=== PATIENT | female | born 1985 | race Caucasian/White ===

== ENCOUNTER 2016-05-18 04:30 | Outpatient (CLI) | payer BC, OTHER | END 2016-05-18 04:31 | disposition home or self-care (01) | DX: R39.15 Urgency of urination (principal) ==

== ENCOUNTER 2019-03-24 11:07 | Outpatient (CLI) | payer OTHER ==
[2019-03-24 18:27] LABS: BASOPHILS % (AUTO) 0.3 %; EOSINOPHILS % (AUTO) 0.6 %; HGB - HEMOGLOBIN 12.2 g/dL (12.0-16.0); LYMPHOCYTES # (AUTO) 1.8 10^3/uL (1.5-3.5); LYMPHOCYTES % (AUTO) 29.3 %; MEAN CORPUSCULAR HEMOGLOBIN 27.2 pg (27.0-31.0); MEAN CORPUSCULAR HGB CONC 31.9 g/dL (32.0-36.0); MEAN CORPUSCULAR VOLUME 85.5 fL (81.0-99.0); MONOCYTES # (AUTO) 0.3 10^3/uL (0.0-1.0); MONOCYTES % (AUTO) 5.3 %; NEUTROPHILS % (AUTO) 64.2 %; PLT - PLATELET COUNT 274 10^3/uL (130-450); RED BLOOD COUNT 4.48 10^6/uL (4.20-5.40); RED CELL DISTRIBUTION WIDTH 13.8 % (12.0-15.0); WHITE BLOOD COUNT 6.2 x10^3/uL (4.8-10.8)
[2019-03-24 19:25] LABS: ALBUMIN 4.2 g/dL (3.2-5.5); ALBUMIN/GLOBULIN RATIO 1.2 (1.0-2.2); ALKALINE PHOSPHATASE 69 IU/L (42-121); ALT ALANINE AMINOTRANSFERASE 19 IU/L (10-60); AST ASPARTATE AMINOTRANSFERASE 18 IU/L (10-42); BILIRUBIN,TOTAL 0.5 mg/dL (0.2-1.0); BUN - BLOOD UREA NITROGEN 11 mg/dL (6-20); CALCIUM 9.2 mg/dL (8.5-10.3); CARBON DIOXIDE - CO2 29 mmol/L (21-32); CHLORIDE 104 mmol/L (101-111); CHOLESTEROL 149 mg/dL; CREATININE 0.8 mg/dL (0.4-1.0); GFR - MDRD 82 (>89); GLUCOSE 87 mg/dL (70-100); HDL CHOLESTEROL 50 mg/dL; LDL CHOLESTEROL,CALCULATED 84 mg/dL; LDL/HDL RATIO 1.7 (<4.4); SODIUM 139 mmol/L (135-145); TOTAL PROTEIN 7.6 g/dL (6.7-8.2); VLDL CHOLESTEROL 15 mg/dL
== END 2019-03-24 23:59 | disposition home or self-care (01) ==
LOC: LAB.WCP 11:07
PROVIDERS: ATTEND Physician Assistant Medical
DX: Z00.00 Encounter for general adult medical examination without abnormal findings (principal)
CPT/HCPCS: 36415; 80053; 80061; 83721; 84443; 85025

== ENCOUNTER 2020-07-31 07:31 | Emergency (ER) | payer OTHER ==
[2020-07-31] MEDS ORDERED: SODIUM CHLORIDE 0.9% 1,000 ML IV STA (07:46)
[2020-07-31] MEDS ORDERED: ONDANSETRON 4 MG/2 ML VIAL IVP STA (07:46)
[2020-07-31] MEDS ORDERED: KETOROLAC 15 MG/ML VIAL IVP STA ×2 (07:46→08:20)
[2020-07-31 07:55] LABS: BASOPHILS % (AUTO) 0.3 %; EOSINOPHILS % (AUTO) 0.4 %; HCT - HEMATOCRIT 39.3 % (37.0-47.0); HGB - HEMOGLOBIN 12.4 g/dL (12.0-16.0); LYMPHOCYTES # (AUTO) 1.1 10^3/uL (1.5-3.5); LYMPHOCYTES % (AUTO) 15.2 %; MEAN CORPUSCULAR HEMOGLOBIN 26.6 pg (27.0-31.0); MEAN CORPUSCULAR HGB CONC 31.6 g/dL (32.0-36.0); MEAN CORPUSCULAR VOLUME 84.3 fL (81.0-99.0); MEAN PLATELET VOLUME 10.7 fL (7.9-10.8); MONOCYTES # (AUTO) 0.3 10^3/uL (0.0-1.0); MONOCYTES % (AUTO) 4.3 %; NEUTROPHILS % (AUTO) 79.4 %; PLT - PLATELET COUNT 272 10^3/uL (130-450); RED BLOOD COUNT 4.66 10^6/uL (4.20-5.40); RED CELL DISTRIBUTION WIDTH 14.8 % (12.0-15.0); WHITE BLOOD COUNT 7.5 x10^3/uL (4.8-10.8)
--- NOTE | 2020-07-31 08:07 | ED Physician Documentation ---
History of Present Illness - Stated complaint Stated Complaint: LT FLANK PX - Chief complaint Chief Complaint: Abd Pain - History obtained from History obtained from: Patient - Additonal information Additional information: 35-year-old woman with past medical history of kidney stones at 17 years of age presents with similar pain today. She states that 4 AM she had sudden onset left flank pain radiating to the left lower quadrant associated with nonbloody nonbilious nausea and vomiting, persistent and sharp, waxing and waning in severity up until 7:30 AM when it abruptly stopped upon arrival to the emergency department. She does still endorse some mild nausea and ache to the back. Denies urinary symptoms, fever or diarrhea. She was feeling normal yesterday. Review of Systems Ten Systems: 10 systems reviewed and negative Constitutional: denies: Fever, Chills GI: reports: Abdominal Pain, Nausea, Vomiting : denies: Dysuria Musculoskeletal: denies: Back pain PD PAST MEDICAL HISTORY - Past Medical History Past Medical History: Yes Cardiovascular: None Respiratory: None Neuro: None Endocrine/Autoimmune: None GI: None GORE CUTTER: Ovarian cysts : Kidney stones HEENT: None Psych: Depression Musculoskeletal: None Derm: None - Past Surgical History Past Surgical History: Yes /GORE CUTTER: section, Tubal ligation - Present Medications Home Medications: Ambulatory Orders Medication Instructions Recorded Confirmed Escitalopram [Lexapro] 10 mg PO DAILY 07/31/20 07/31/20 Ondansetron Odt [Zofran Odt] 4 mg TL Q6H PRN #10 tablet 07/31/20 Tamsulosin [Flomax] 0.4 mg PO DAILY 14 Days #14 tab 07/31/20 oxyCODONE [Roxicodone] 5 mg PO Q4-6H PRN #8 tablet 07/31/20 - Allergies Allergies/Adverse Reactions: Allergies Allergy/AdvReac Type Severity Reaction Status Date / Time No Known Drug Allergies Allergy Verified 07/31/20 07:34 - Social History Does the pt smoke?: No Smoking Status: Never smoker Does the pt drink ETOH?: No Does the pt have substance abuse?: No PD ED PE NORMAL - Vitals Vital signs reviewed: Yes - General General: Alert and oriented X 3, No acute distress, Well developed/nourished - HEENT HEENT: Atraumatic, PERRL, EOMI - Neck Neck: Supple, no meningeal sign - Cardiac Cardiac: RRR - Respiratory Respiratory: No respiratory distress, Clear bilaterally - Abdomen Abdomen: Non tender, Non distended - Back Back: No CVA TTP, Other (Left CVA discomfort with palpation) - Derm Derm: Normal color, Warm and dry - Extremities Extremities: No deformity - Neuro Neuro: Alert and oriented X 3 - Psych Psych: Normal mood, Normal affect Results - Vitals Vitals: Vital Signs - 24 hr 07/31/20 07/31/20 07:34 08:07 Temperature 36.2 C L Heart Rate 72 76 Respiratory 18 18 Rate Blood Pressure 134/90 H 155/81 H O2 Saturation 100 100 Oxygen O2 Source Room air - Labs Labs: Laboratory Tests 07/31/20 07/31/20 07:50 07:50 WBC 7.5 RBC 4.66 Hgb 12.4 Hct 39.3 MCV 84.3 MCH 26.6 L MCHC 31.6 L RDW 14.8 Plt Count 272 MPV 10.7 Neut # (Auto) 6.0 Lymph # (Auto) 1.1 L Person # (Auto) 0.3 Eos # (Auto) 0.0 Baso # (Auto) 0.0 Absolute Nucleated RBC 0.00 Nucleated RBC % 0.0 Sodium 141 Potassium 3.7 Chloride 103 Carbon Dioxide 29 Anion Gap 9.0 BUN 13 Creatinine 0.8 Estimated GFR (MDRD) 81 L Glucose 119 H Calcium 9.0 Total Bilirubin 0.4 AST 19 ALT 23 Alkaline Phosphatase 70 Total Protein 7.8 Albumin 4.3 Globulin 3.5 Albumin/Globulin Ratio 1.2 Lipase 36 PD MEDICAL DECISION MAKING - ED course ED course: 35-year-old woman presents with apparent recurrent kidney stones. Her symptoms were well controlled upon arrival to the emergency department, however we will give her Zofran and Toradol proactively. patient with mild recurrence of pain when she went to bathroom to urinate and passed a small stone into the toilet. labs urinalysis unremarkable. Bedside [id number] ultrasound of the kidneys and bladder are normal without any signs of hydronephrosis. Patient will follow up outpatient urology. Strict return precautions given Departure - Departure Clinical Impression: Kidney stones Condition: Good Instructions: Kidney Stones Follow-Up: Anuja Ayala MD [Physician No Access] - Prescriptions: Tamsulosin [Flomax] 0.4 mg PO DAILY 14 Days #14 tab oxyCODONE [Roxicodone] 5 mg PO Q4-6H PRN #8 tablet PRN Reason: Pain Ondansetron Odt [Zofran Odt] 4 mg TL Q6H PRN #10 tablet PRN Reason: Nausea / Vomiting Comments: You are seen in the emergency department for kidney stones. Your urine sample and blood work was normal. You should follow-up outpatient with urology. Retu rn to the emergency department if develop any new or worsening symptoms or have other concerns.
[2020-07-31 08:09] LABS: ALBUMIN 4.3 g/dL (3.2-5.5); ALBUMIN/GLOBULIN RATIO 1.2 (1.0-2.2); BILIRUBIN,TOTAL 0.4 mg/dL (0.2-1.0); CREATININE 0.8 mg/dL (0.4-1.0); POTASSIUM 3.7 mmol/L (3.5-5.0); TOTAL PROTEIN 7.8 g/dL (6.7-8.2)
[2020-07-31 08:19] LABS: BILIRUBIN,URINE NEGATIVE (NEGATIVE); GLUCOSE, URINE (UA) NEGATIVE (NEGATIVE); KETONES,URINE (UA) NEGATIVE (NEGATIVE); LEUKOCYTE ESTERASE, URINE NEGATIVE (NEGATIVE); NITRITE,URINE NEGATIVE (NEGATIVE); OCCULT BLOOD,URINE MODERATE (NEGATIVE); PROTEIN,URINE NEGATIVE (NEGATIVE); UROBILINOGEN,URINE 0.2 (NORMAL) E.U./dL (NORMAL)
[2020-07-31] MEDS ORDERED: ACETAMINOPHEN 325 MG TABLET PO STA (08:20)
[2020-07-31 08:26] LABS: CLARITY,URINE CLEAR (CLEAR)
[2020-07-31 08:31] LABS: WBC,URINE 0-3 /HPF (0-5)
[2020-07-31 08:32] LABS: BACTERIA,URINE Few /HPF (None Seen); SQUAMOUS EPITHELIAL CELL,UR MOD Squamous (<= Few)
[2020-07-31 09:14] VITALS: BP 129/82
== END 2020-07-31 09:17 | disposition home or self-care (01) ==
LOC: ED 07:31
DX: N20.0 Calculus of kidney (principal); Z87.442 Personal history of urinary calculi
CPT/HCPCS: 36415; 80053; 81001; 83690; 85025; 96361; 96374; 99283; 99284; A9270; 81003; 87086

== ENCOUNTER 2021-04-06 08:00 | Outpatient (CLI) | payer OTHER | END 2021-04-06 23:59 | disposition home or self-care (01) | LOC: LAB.WCP 08:00 | PROVIDERS: ATTEND Physician Assistant Medical | DX: R39.15 Urgency of urination (principal) | CPT/HCPCS: 87086 ==

== ENCOUNTER 2021-07-14 15:38 | Outpatient (CLI) | payer OTHER ==
[2021-07-17 14:02] LABS: NIL 0.02 IU/mL; TB2-NIL 0.01 IU/mL
== END 2021-07-14 15:39 | disposition home or self-care (01) ==
LOC: LAB.N 15:38
PROVIDERS: ATTEND Nurse Practitioner Family
DX: Z11.1 Encounter for screening for respiratory tuberculosis (principal)
CPT/HCPCS: 36415; 86480

== ENCOUNTER 2021-09-18 09:13 | Outpatient (CLI) | payer OTHER ==
[2021-09-18 11:55] LABS: BASOPHILS % (AUTO) 0.3 %; EOSINOPHILS # (AUTO) 0.1 10^3/uL (0.0-0.7); HCT - HEMATOCRIT 38.4 % (37.0-47.0); HGB - HEMOGLOBIN 12.2 g/dL (12.0-16.0); LYMPHOCYTES # (AUTO) 2.4 10^3/uL (1.5-3.5); LYMPHOCYTES % (AUTO) 32.9 %; MEAN CORPUSCULAR HEMOGLOBIN 26.2 pg (27.0-31.0); MEAN CORPUSCULAR HGB CONC 31.8 g/dL (32.0-36.0); MEAN CORPUSCULAR VOLUME 82.4 fL (81.0-99.0); MEAN PLATELET VOLUME 10.9 fL (7.9-10.8); MONOCYTES # (AUTO) 0.4 10^3/uL (0.0-1.0); MONOCYTES % (AUTO) 5.8 %; NEUTROPHILS # (AUTO) 4.3 10^3/uL (1.5-6.6); NEUTROPHILS % (AUTO) 59.7 %; PLT - PLATELET COUNT 319 10^3/uL (130-450); RED BLOOD COUNT 4.66 10^6/uL (4.20-5.40); RED CELL DISTRIBUTION WIDTH 14.4 % (12.0-15.0); WHITE BLOOD COUNT 7.2 x10^3/uL (4.8-10.8)
[2021-09-18 12:20] LABS: ALBUMIN 4.1 g/dL (3.2-5.5); ALBUMIN/GLOBULIN RATIO 1.2 (1.0-2.2); ALKALINE PHOSPHATASE 62 IU/L (42-121); ALT ALANINE AMINOTRANSFERASE 24 IU/L (10-60); AST ASPARTATE AMINOTRANSFERASE 18 IU/L (10-42); BILIRUBIN,TOTAL 0.3 mg/dL (0.2-1.0); BUN - BLOOD UREA NITROGEN 10 mg/dL (6-20); CALCIUM 9.7 mg/dL (8.5-10.3); CARBON DIOXIDE - CO2 29 mmol/L (21-32); CHLORIDE 104 mmol/L (101-111); CHOL/HDL RATIO 3.8 (<4.4); CHOLESTEROL 168 mg/dL; CREATININE 0.7 mg/dL (0.4-1.0); GFR - MDRD 94 (>89); GLUCOSE 102 mg/dL (70-100); HDL CHOLESTEROL 44 mg/dL; LDL CHOLESTEROL,CALCULATED 108 mg/dL; LDL/HDL RATIO 2.5 (<4.4); POTASSIUM 4.2 mmol/L (3.5-5.0); SODIUM 141 mmol/L (135-145); TOTAL PROTEIN 7.4 g/dL (6.7-8.2); TRIGLYCERIDES 79 mg/dL; VLDL CHOLESTEROL 16 mg/dL
[2021-09-18 12:25] LABS: ESTIMATED AVERAGE GLUCOSE 105 mg/dL (70-100); HEMOGLOBIN A1c% 5.3 % (4.27-6.07); THYROID STIMULATING HORMONE 3.18 uIU/mL (0.34-5.60)
== END 2021-09-18 09:14 | disposition home or self-care (01) ==
LOC: LAB.N 09:13
PROVIDERS: ATTEND Nurse Practitioner Family
DX: R03.0 Elevated blood-pressure reading, without diagnosis of hypertension (principal); E66.01 Morbid (severe) obesity due to excess calories
CPT/HCPCS: 36415; 80053; 80061; 83036; 83721; 84443; 85025

== ENCOUNTER 2022-01-15 15:28 | Outpatient (CLI) | payer OTHER ==
[2022-01-15 17:37] LABS: BASOPHILS % (AUTO) 0.3 %; EOSINOPHILS # (AUTO) 0.1 10^3/uL (0.0-0.7); EOSINOPHILS % (AUTO) 0.5 %; HCT - HEMATOCRIT 38.3 % (37.0-47.0); HGB - HEMOGLOBIN 12.5 g/dL (12.0-16.0); LYMPHOCYTES # (AUTO) 2.6 10^3/uL (1.5-3.5); LYMPHOCYTES % (AUTO) 27.6 %; MEAN CORPUSCULAR HEMOGLOBIN 26.4 pg (27.0-31.0); MEAN CORPUSCULAR HGB CONC 32.6 g/dL (32.0-36.0); MEAN PLATELET VOLUME 11.2 fL (7.9-10.8); MONOCYTES # (AUTO) 0.5 10^3/uL (0.0-1.0); MONOCYTES % (AUTO) 4.9 %; NEUTROPHILS # (AUTO) 6.2 10^3/uL (1.5-6.6); NEUTROPHILS % (AUTO) 66.4 %; PLT - PLATELET COUNT 339 10^3/uL (130-450); RED BLOOD COUNT 4.73 10^6/uL (4.20-5.40); WHITE BLOOD COUNT 9.3 x10^3/uL (4.8-10.8)
[2022-01-15 17:58] LABS: ALBUMIN 4.3 g/dL (3.2-5.5); ALBUMIN/GLOBULIN RATIO 1.1 (1.0-2.2); BILIRUBIN,TOTAL 0.4 mg/dL (0.2-1.0); CALCIUM 9.7 mg/dL (8.5-10.3); CREATININE 0.7 mg/dL (0.4-1.0); POTASSIUM 3.6 mmol/L (3.5-5.0); TOTAL PROTEIN 8.1 g/dL (6.7-8.2)
== END 2022-01-15 15:29 | disposition home or self-care (01) ==
LOC: LAB.N 15:28
PROVIDERS: ATTEND Physician Assistant
DX: R10.12 Left upper quadrant pain (principal)
CPT/HCPCS: 36415; 80053; 82150; 83690; 85025

== ENCOUNTER 2022-01-18 07:52 | Outpatient (CLI) | payer OTHER ==
--- NOTE | 2022-01-19 11:18 | Mammography Report ---
UNILATERAL LEFT DIGITAL DIAGNOSTIC MAMMOGRAM 3D/2D: 01/18/2022 CLINICAL: Patient returns for a 6 month follow up of the left breast. Comparison is made to exams dated: 07/18/2021 mammogram and 07/18/2021 ultrasound - [facility]. There are scattered areas of fibroglandular density in the left breast (category b / 25%-50% glandula r tissue). There is a 1.1 cm oval focal asymmetry with a circumscribed margin in the left breast at 8 o'clock mi ddle depth. This is seen in additional views. This is more prominent. No other significant masses or calcifications are seen in the breast. IMPRESSION: INCOMPLETE: NEEDS ADDITIONAL IMAGING EVALUATION The 1.1 cm oval focal asymmetry in the left breast is indeterminate. An ultrasound is recommended. Based on the Tyrer Cuzick model (a risk assessment model) the patients lifetime risk is 13.2% and he r 10 year risk is 1.2%. According to the ACR, ACS, and NCCN guidelines, an annual breast MRI exam tomasz ng with mammogram is recommended if the patients lifetime risk is 20% or greater. This exam was interpreted at Station ID: [id number]. NOTE: For mammograms, a report in lay terms will be sent to the patient. Approximately 15% of breast malignancies will not be visualized mammographically. In the management of a palpable breast mass, a negative mammogram must not discourage biopsy of a clinically suspicious lesion. Electronically Signed By: Lonny vaughan/lee:01/19/2022 07:50:53 ACR BI-RADS Category 0: Incomplete 3340F PARENCHYMAL PATTERN: (A) - The breast(s) demonstrate(s) scattered fibroglandular densities. BI-RADS CATEGORY: (0) - 0 Ultrasound [id number] Immediate follow-up LATERALITY: (L)
--- NOTE | 2022-01-19 11:18 | Ultrasound Report ---
LIMITED ULTRASOUND OF LEFT BREAST: 01/18/2022 CLINICAL: Short term follow up for the left breast. Comparison is made to exams dated: 01/18/2022 mammogram - [facility], 07/18/2021 [facility], and 07/18/2021 mammogram - [facility]. Color flow and real-time ultrasound of the left breast 1 o'clock region were performed. Lerner scale images of the real-time examination were reviewed. There is a 1.1 cm x 0.9 cm x 0.4 cm cluster of oval cysts with a septated internal wall in the left b reast at 8 o'clock middle depth 5 cm from the nipple. This cluster of oval cysts is anechoic and hyp oechoic. This correlates with mammography findings. Color flow imaging demonstrates that there is n o vascularity present. There also is a benign dilated duct in the left breast at 1 o'clock middle depth 4 cm from the nipple . This correlates as an incidental finding. The dilated duct in the left breast at 1 o'clock posterior depth is no longer seen. IMPRESSION: PROBABLY BENIGN The 1.1 cm x 0.9 cm x 0.4 cm cluster of oval cysts in the left breast at 8 o'clock middle depth is co nsistent with a complicated cyst and is probably benign. The dilated duct in the left breast at 1 o'clock middle depth is benign. A follow-up mammogram and an ultrasound in 6 months is recommended to demonstrate stability. This exam was interpreted at Station ID: [id number]. Electronically Signed By: Lonny Beaver M.D. ar/:01/19/2022 07:54:59 Ultrasound BI-RADS: 3 Probably benign BI-RADS CATEGORY: (3) - 3 Mammo and [place] [id number] 6 month follow-up LATERALITY: (B)
== END 2022-01-18 07:53 | disposition home or self-care (01) ==
LOC: DI 07:52
PROVIDERS: ATTEND Nurse Practitioner Family
DX: N60.12 Diffuse cystic mastopathy of left breast (principal)

== ENCOUNTER 2022-01-25 07:20 | Outpatient (CLI) | payer OTHER ==
--- NOTE | 2022-01-26 09:33 | Ultrasound Report ---
PROCEDURE: Abdomen Complete INDICATIONS: ABD PAIN TECHNIQUE: Real-time scanning was performed of the abdominal and retroperitoneal organs, with image documentatio n. COMPARISON: None. FINDINGS: Liver: Liver is normal in size and diffusely increased echotexture. Gallbladder: Surgically absent. Biliary ducts: Intrahepatic bile ducts are non-dilated. Extrahepatic bile duct caliber measures 5.6 mm. Normal is 6-7 mm or less in diameter, or 10 mm or less post-cholecystectomy. Pancreas: Visualized portions of the pancreas are sonographically normal. Spleen: Spleen is normal in size and homogeneous in echotexture. Spleen measures 11.1 x 6.1 x 10 cm with an estimated volume of 351 mL. Kidneys: Kidneys are normal in size and echotexture. Right kidney measures 11.5 cm long; left kidne y measures 11.7 cm long. No hydronephrosis or nephrolithiasis. No solid masses. Aorta: Visualized aorta is normal in caliber at less than 3 cm. Iliacs: Proximal common iliac arteries are normal in caliber at less than 2.5 cm. IVC: Intrahepatic inferior vena cava is patent. Miscellaneous: No free abdominal fluid. IMPRESSION: 1. Diffuse increased hepatic echotexture consistent with fatty infiltration. Other hepatocellular dis ease may have a similar ultrasound appearance. Please correlate clinically. Reviewed by: Miguel Angel Mauro MD on 01/26/2022 9:32 AM PDT Approved by: Miguel Angel Mauro MD on 01/26/2022 9:32 AM PDT Station ID: [id number]
== END 2022-01-25 07:21 | disposition home or self-care (01) ==
LOC: DI 07:20
PROVIDERS: ATTEND Nurse Practitioner Family
DX: R10.12 Left upper quadrant pain (principal)

== ENCOUNTER 2022-02-14 16:42 | Outpatient (CLI) | payer OTHER ==
[2022-02-14 20:25] LABS: ALBUMIN 4.1 g/dL (3.2-5.5); ALBUMIN/GLOBULIN RATIO 1.1 (1.0-2.2); BILIRUBIN,TOTAL 0.4 mg/dL (0.2-1.0); CALCIUM 9.4 mg/dL (8.5-10.3); CREATININE 0.8 mg/dL (0.4-1.0); POTASSIUM 3.4 mmol/L (3.5-5.0); TOTAL PROTEIN 7.8 g/dL (6.7-8.2)
== END 2022-02-14 16:43 | disposition home or self-care (01) ==
LOC: LAB.N 16:42
PROVIDERS: ATTEND Nurse Practitioner Family
DX: I10 Essential (primary) hypertension (principal)
CPT/HCPCS: 36415; 80053

== ENCOUNTER 2022-07-18 09:49 | Outpatient (CLI) | payer OTHER ==
--- NOTE | 2022-07-19 10:10 | Mammography Report ---
BILATERAL DIGITAL DIAGNOSTIC MAMMOGRAM 3D/2D: 07/18/2022 CLINICAL: Patient returns for a 6 month follow up of the left breast, due for bilateral exam. Comparison is made to exams dated: 01/18/2022 mammogram - [facility] and 07/18/2021 mammogram - [facility]. There are scattered areas of fibroglandular density in both breasts (category b / 25%-50% glandular t issue). The subtle irregular low density asymmetry in the left breast at 8 o'clock middle depth is not signif icantly changed. Mammograms are otherwise stable. No new abnormalities in the area previously palpab le. No other significant masses, calcifications, or other findings are seen in either breast. IMPRESSION: INCOMPLETE: NEEDS ADDITIONAL IMAGING EVALUATION The possible irregular low density asymmetry in the left breast is stable. An ultrasound is recommend ed for confirmation. This was performed immediately following this exam. Based on the Tyrer Cuzick model (a risk assessment model) the patients lifetime risk is 13.1% and he r 10 year risk is 1.4%. According to the ACR, ACS, and NCCN guidelines, an annual breast MRI exam tomasz ng with mammogram is recommended if the patients lifetime risk is 20% or greater. This exam was interpreted at Station ID: [id number]. NOTE: For mammograms, a report in lay terms will be sent to the patient. Approximately 15% of breast malignancies will not be visualized mammographically. In the management of a palpable breast mass, a negative mammogram must not discourage biopsy of a clinically suspicious lesion. Electronically Signed By: Joy mendez/:07/18/2022 11:22:09 ACR BI-RADS Category 0: Incomplete 3340F PARENCHYMAL PATTERN: (A) - The breast(s) demonstrate(s) scattered fibroglandular densities. BI-RADS CATEGORY: (0) - 0 Ultrasound [id number] Immediate follow-up LATERALITY: (B)
--- NOTE | 2022-07-19 10:10 | Ultrasound Report ---
LIMITED ULTRASOUND OF LEFT BREAST: 07/18/2022 CLINICAL: Palpable left breast lump. Comparison is made to exams dated: 07/18/2022 mammogram, 01/18/2022 ultrasound, 01/18/2022 mammogram - [facility], 07/18/2021 ultrasound, and 07/18/2021 [facility]ogram - [facility] Color flow and real-time ultrasound of the left breast 1 o'clock and 8 o'clock regions were roseanne taylor. Lerner scale images of the real-time examination were reviewed. There is a 0.7 cm x 0.7 cm x 0.4 cm cluster of microcysts with a septated internal wall in the left b reast at 8 o'clock middle depth 5 cm from the nipple. This cluster is anechoic and hypoechoic. This abnormality is are decreased in size and correlates with mammography findings. Color flow imaging d emonstrates that there is no vascularity present. There also is a benign 0.3 cm x 0.2 cm x 0.2 cm round cyst in the left breast at 1 o'clock middle dep th 4 cm from the nipple. This correlates as an incidental finding. Color flow imaging demonstrates that there is no vascularity present. IMPRESSION: PROBABLY BENIGN The 0.7 cm x 0.7 cm x 0.4 cm cluster of oval cysts in the left breast at 8 o'clock middle depth has d ecreased size, is consistent with a complicated cyst and is probably benign. The 0.3 cm x 0.2 cm x 0.2 cm round cyst in the left breast at 1 o'clock middle depth is benign. A follow-up left mammogram and an ultrasound in 6 months is recommended to demonstrate stability. Findings and recommendations were conveyed to the patient at time of exam. This exam was interpreted at Station ID: [id number]. Electronically Signed By: Joy mendez/:07/18/2022 11:26:10 Ultrasound BI-RADS: 3 Probably benign BI-RADS CATEGORY: (3) - 3 Mammo and US [id number] 6 month follow-up LATERALITY: (L)
== END 2022-07-18 09:50 | disposition home or self-care (01) ==
LOC: DI 09:49
PROVIDERS: ATTEND Nurse Practitioner Family
DX: N60.12 Diffuse cystic mastopathy of left breast (principal)

== ENCOUNTER 2022-08-27 17:48 | Outpatient (CLI) | payer OTHER ==
[2022-08-27 21:21] LABS: ALBUMIN 3.9 g/dL (3.2-5.5); BILIRUBIN,TOTAL 0.3 mg/dL (0.2-1.0); CALCIUM 9.3 mg/dL (8.5-10.3); CREATININE 0.8 mg/dL (0.4-1.0); POTASSIUM 3.1 mmol/L (3.5-5.0); TOTAL PROTEIN 7.7 g/dL (6.7-8.2)
[2022-08-28 08:02] LABS: BASOPHILS % (AUTO) 0.4 %; EOSINOPHILS # (AUTO) 0.2 10^3/uL (0.0-0.7); EOSINOPHILS % (AUTO) 2.1 %; HCT - HEMATOCRIT 31.9 % (37.0-47.0); HGB - HEMOGLOBIN 9.8 g/dL (12.0-16.0); LYMPHOCYTES # (AUTO) 2.7 10^3/uL (1.5-3.5); LYMPHOCYTES % (AUTO) 27.4 %; MEAN CORPUSCULAR HEMOGLOBIN 25.1 pg (27.0-31.0); MEAN CORPUSCULAR HGB CONC 30.7 g/dL (32.0-36.0); MEAN CORPUSCULAR VOLUME 81.8 fL (81.0-99.0); MEAN PLATELET VOLUME 10.4 fL (7.9-10.8); MONOCYTES # (AUTO) 0.6 10^3/uL (0.0-1.0); MONOCYTES % (AUTO) 6.5 %; NEUTROPHILS # (AUTO) 6.2 10^3/uL (1.5-6.6); NEUTROPHILS % (AUTO) 63.3 %; PLT - PLATELET COUNT 393 10^3/uL (130-450); RED CELL DISTRIBUTION WIDTH 15.4 % (12.0-15.0); WHITE BLOOD COUNT 9.9 x10^3/uL (4.8-10.8)
== END 2022-08-27 17:49 | disposition home or self-care (01) ==
LOC: LAB.N 17:48
PROVIDERS: ATTEND Internal Medicine
DX: N93.9 Abnormal uterine and vaginal bleeding, unspecified (principal)
CPT/HCPCS: 36415; 80053; 82728; 83540; 84466; 85025

== ENCOUNTER 2023-01-07 07:10 | Outpatient (CLI) | payer OTHER ==
[2023-01-07 12:24] LABS: BASOPHILS % (AUTO) 0.4 %; EOSINOPHILS # (AUTO) 0.1 10^3/uL (0.0-0.7); HCT - HEMATOCRIT 33.5 % (37.0-47.0); HGB - HEMOGLOBIN 10.1 g/dL (12.0-16.0); LYMPHOCYTES # (AUTO) 2.4 10^3/uL (1.5-3.5); LYMPHOCYTES % (AUTO) 33.6 %; MEAN CORPUSCULAR HEMOGLOBIN 23.5 pg (27.0-31.0); MEAN CORPUSCULAR HGB CONC 30.1 g/dL (32.0-36.0); MEAN CORPUSCULAR VOLUME 78.1 fL (81.0-99.0); MEAN PLATELET VOLUME 10.2 fL (7.9-10.8); MONOCYTES # (AUTO) 0.4 10^3/uL (0.0-1.0); MONOCYTES % (AUTO) 5.6 %; NEUTROPHILS # (AUTO) 4.1 10^3/uL (1.5-6.6); NEUTROPHILS % (AUTO) 59.3 %; PLT - PLATELET COUNT 369 10^3/uL (130-450); RED BLOOD COUNT 4.29 10^6/uL (4.20-5.40); RED CELL DISTRIBUTION WIDTH 16.3 % (12.0-15.0)
[2023-01-07 13:20] LABS: ESTIMATED AVERAGE GLUCOSE 108 mg/dL (70-100); HEMOGLOBIN A1c% 5.4 % (4.27-6.07)
[2023-01-07 13:38] LABS: ALBUMIN 4.3 g/dL (3.2-5.5); ALBUMIN/GLOBULIN RATIO 1.5 (1.0-2.2); ALKALINE PHOSPHATASE 73 IU/L (42-121); ALT ALANINE AMINOTRANSFERASE 15 IU/L (10-60); AST ASPARTATE AMINOTRANSFERASE 12 IU/L (10-42); BILIRUBIN,TOTAL 0.3 mg/dL (0.2-1.0); BUN - BLOOD UREA NITROGEN 13 mg/dL (6-20); CALCIUM 9.7 mg/dL (8.5-10.3); CARBON DIOXIDE - CO2 33 mmol/L (21-32); CHLORIDE 102 mmol/L (101-111); CHOL/HDL RATIO 3.6 (<4.4); CHOLESTEROL 159 mg/dL; CREATININE 0.8 mg/dL (0.6-1.3); GFR - MDRD 80 (>89); GLUCOSE 107 mg/dL (74-104); HDL CHOLESTEROL 44 mg/dL; LDL CHOLESTEROL,CALCULATED 97 mg/dL; LDL/HDL RATIO 2.2 (<4.4); POTASSIUM 3.7 mmol/L (3.5-4.5); SODIUM 140 mmol/L (135-145); TOTAL PROTEIN 7.2 g/dL (6.4-8.9); TRIGLYCERIDES 88 mg/dL (48-352); VLDL CHOLESTEROL 18 mg/dL
== END 2023-01-07 07:11 | disposition home or self-care (01) ==
LOC: LAB.N 07:10
PROVIDERS: ATTEND Nurse Practitioner Family
DX: Z00.00 Encounter for general adult medical examination without abnormal findings (principal); I10 Essential (primary) hypertension; E66.01 Morbid (severe) obesity due to excess calories
CPT/HCPCS: 36415; 80053; 80061; 83036; 83721; 84443; 85025

== ENCOUNTER 2023-02-11 10:12 | Outpatient (CLI) | payer OTHER ==
--- NOTE | 2023-02-11 12:25 | Ultrasound Report ---
LIMITED ULTRASOUND OF LEFT BREAST: 02/11/2023 CLINICAL: Patient returns for a 6 month follow up of the left breast. Comparison is made to exams dated: 07/18/2022 ultrasound, 07/18/2022 mammogram, 01/18/2022 ultrasound, and 01/18/2022 mammogram - [facility]. Color flow ultrasound of the left breast 1 o'clock and 8 o'clock regions was performed. Lerner scale images of the real-time examination were reviewed. There is a 0.5 cm x 0.5 cm x 0.2 cm cluster of oval cysts with a septated internal wall in the left b reast at 8 o'clock middle depth 5 cm from the nipple. This cluster of oval cysts is anechoic and hyp oechoic. These abnormalities are decreased in size and correlates with mammography findings. Color flow imaging demonstrates that there is no vascularity present. The 0.3 cm x 0.2 cm x 0.2 cm round cyst in the left breast at 1 o'clock middle depth 4 cm from the ni pple is no longer seen. IMPRESSION: PROBABLY BENIGN The 0.5 cm x 0.5 cm x 0.2 cm cluster of oval cysts in the left breast at 8 o'clock middle depth is pr obably a complicated cluster of cysts and is probably benign. A follow-up mammogram and an ultrasound in 6 months is recommended to demonstrate stability. This exam was interpreted at Station ID: [id number]. Electronically Signed By: Samy Bosch M.D. lc/:02/11/2023 11:10:38 Ultrasound BI-RADS: 3 Probably benign BI-RADS CATEGORY: (3) - 3 Mammo and US [id number] 6 month follow-up LATERALITY: (B)
--- NOTE | 2023-02-11 12:25 | Mammography Report ---
UNILATERAL LEFT DIGITAL DIAGNOSTIC MAMMOGRAM 3D/2D: 02/11/2023 CLINICAL: Patient returns for a 6 month follow up of the left breast. Comparison is made to exams dated: 07/18/2022 mammogram, 01/18/2022 mammogram - [facility], and 07/18/2021 mammogram - [facility]. There are scattered areas of fibroglandular density in the left breast (category b / 25%-50% glandula r tissue). There is a possible asymmetry in the left breast at 8 o'clock middle depth. This is not significantl y changed. No other significant masses or calcifications are seen in the breast. Many presumed benign oval circumscribed masses are present as before. IMPRESSION: INCOMPLETE: NEEDS ADDITIONAL IMAGING EVALUATION The possible asymmetry in the left breast is indeterminate. An ultrasound is recommended. Based on the Tyrer Cuzick model (a risk assessment model) the patients lifetime risk is 13.1% and he r 10 year risk is 1.4%. According to the ACR, ACS, and NCCN guidelines, an annual breast MRI exam tomasz ng with mammogram is recommended if the patients lifetime risk is 20% or greater. This exam was interpreted at Station ID: [id number]. NOTE: For mammograms, a report in lay terms will be sent to the patient. Approximately 15% of breast malignancies will not be visualized mammographically. In the management of a palpable breast mass, a negative mammogram must not discourage biopsy of a clinically suspicious lesion. Electronically Signed By: Samy Bosch M.D. lc/:02/11/2023 11:07:06 ACR BI-RADS Category 0: Incomplete 3340F PARENCHYMAL PATTERN: (A) - The breast(s) demonstrate(s) scattered fibroglandular densities. BI-RADS CATEGORY: (0) - 0 Ultrasound [id number] Immediate follow-up LATERALITY: (B)
== END 2023-02-11 10:13 | disposition home or self-care (01) ==
LOC: DI 10:12
PROVIDERS: ATTEND Nurse Practitioner Family
DX: N60.12 Diffuse cystic mastopathy of left breast (principal); R92.322 Mammographic fibroglandular density, left breast

== ENCOUNTER 2023-10-01 13:31 | Outpatient (CLI) | payer OTHER ==
--- NOTE | 2023-10-02 08:49 | Ultrasound Report ---
LIMITED ULTRASOUND OF LEFT BREAST: 10/01/2023 CLINICAL: Patient returns today to evaluate a focal asymmetry in the left breast. Comparison is made to exams dated: 02/11/2023 ultrasound, 10/01/2023 mammogram, 02/11/2023 mammogram, 07/18/2022 ultrasound, 07/18/2022 mammogram, and 01/18/2022 ultrasound - [facility]. Color flow and real-time ultrasound of the left breast 8 o'clock region were performed. There is a 0.5 cm x 0.5 cm x 0.4 cm cluster of oval cysts with thin septated internal uribe in the le ft breast at 8 o'clock middle depth 5 cm from the nipple. This cluster of oval cysts is anechoic and hypoechoic with no posterior acoustic shadowing or enhancement. These abnormalities are not signifi cantly changed and likely correlates with mammography findings. Color flow imaging demonstrates that there is no vascularity present. IMPRESSION: PROBABLY BENIGN The 0.5 cm x 0.5 cm x 0.4 cm cluster of oval cysts in the left breast is consistent with a complicate d cyst and is probably benign. A follow-up left mammogram and an ultrasound in 6 months is recommended to demonstrate detention sta bility. Findings and recommendations were conveyed to the patient during today's evaluation. This exam was interpreted at Station ID: [id number]. Electronically Signed By: Mele Knox M.D. aty/:10/01/2023 16:15:28 Ultrasound BI-RADS: 3 Probably benign BI-RADS CATEGORY: (3) - 3 Mammo and US [id number] 6 month follow-up LATERALITY: (B)
--- NOTE | 2023-10-02 08:49 | Mammography Report ---
BILATERAL DIGITAL DIAGNOSTIC MAMMOGRAM 3D/2D: 10/01/2023 CLINICAL: Patient returns for a 6 month follow up of the left breast, due for bilateral exam. Comparison is made to exams dated: 02/11/2023 mammogram, 07/18/2022 mammogram, 01/18/2022 mammogram - [facility], and 07/18/2021 mammogram - [facility]. There are scattered areas of fibroglandular density in both breasts (category b / 25%-50% glandular t issue). There is a new 1 cm oval focal asymmetry in the right breast central to the nipple middle depth. Redemonstration of previously described possible oval asymmetry in the left breast at 8 o'clock middl e depth. This is not significantly changed. No other significant masses or calcifications are seen in either breast. IMPRESSION: INCOMPLETE: NEEDS ADDITIONAL IMAGING EVALUATION The new 1 cm oval focal asymmetry in the right breast central to the nipple middle depth resembles a cyst and is indeterminate. An ultrasound is recommended for further evaluation and is scheduled to i mmediately follow this examination. The oval asymmetry in the left breast at 8 o'clock middle depth is indeterminate. An ultrasound is r ecommended for further evaluation and is scheduled to immediately follow this examination. Based on the Tyrer Cuzick model (a risk assessment model) the patient's lifetime risk is 13.1% and he r 10 year risk is 1.5%. According to the ACR, ACS, and NCCN guidelines, an annual breast MRI exam tomasz ng with mammogram is recommended if the patient's lifetime risk is 20% or greater. This exam was interpreted at Station ID: [id number]. NOTE: For mammograms, a report in lay terms will be sent to the patient. Approximately 15% of breast malignancies will not be visualized mammographically. In the management of a palpable breast mass, a negative mammogram must not discourage biopsy of a clinically suspicious lesion. Electronically Signed By: eMle Knox M.D. aty/:10/01/2023 14:29:33 ACR BI-RADS Category 0: Incomplete 3340F PARENCHYMAL PATTERN: (A) - The breast(s) demonstrate(s) scattered fibroglandular densities. BI-RADS CATEGORY: (0) - 0 Ultrasound [id number] Immediate follow-up LATERALITY: (B)
--- NOTE | 2023-10-02 08:49 | Ultrasound Report ---
LIMITED ULTRASOUND OF RIGHT BREAST: 10/01/2023 CLINICAL: Patient returns today to evaluate a focal asymmetry in the right breast. Comparison is made to exams dated: 10/01/2023 ultrasound, 10/01/2023 mammogram, 02/11/2023 ultrasound, 04/13/2022 mammogram, 07/18/2022 ultrasound, and 07/18/2022 mammogram - [facility]. Color flow and real-time ultrasound of the right breast 6 o'clock region were performed. Lerner scale images of the real-time examination were reviewed. There is a 0.9 cm x 0.7 cm cluster of complicated cysts with thin septated internal uribe in the righ t breast at 6 o'clock middle depth 7 cm from the nipple. This cluster of complicated cysts is hypoec hoic with internal echoes and no posterior acoustic shadowing or enhancement. This correlates with m ammography findings. Color flow imaging demonstrates that there is no vascularity present. IMPRESSION: PROBABLY BENIGN The 0.9 cm x 0.7 cm cluster of complicated cysts in the right breast is probably benign. A follow-up right mammogram and a right ultrasound in 6 months is recommended to demonstrate stabilit y. Findings and recommendations were conveyed to the patient during today's evaluation. This exam was interpreted at Station ID: [id number]. Electronically Signed By: Mele Knox M.D. aty/:10/01/2023 16:21:04 Ultrasound BI-RADS: 3 Probably benign BI-RADS CATEGORY: (3) - 3 Mammo and US [id number] 6 month follow-up LATERALITY: (R)
== END 2023-10-01 13:32 | disposition home or self-care (01) ==
LOC: DI 13:31
PROVIDERS: ATTEND Nurse Practitioner Family
DX: N60.12 Diffuse cystic mastopathy of left breast (principal); N60.11 Diffuse cystic mastopathy of right breast; R92.323 Mammographic fibroglandular density, bilateral breasts

== ENCOUNTER 2023-12-20 14:44 | Outpatient (CLI) | payer OTHER | END 2023-12-20 14:45 | disposition home or self-care (01) | LOC: LAB.N 14:44 | PROVIDERS: ATTEND Nurse Practitioner Family | DX: Z11.1 Encounter for screening for respiratory tuberculosis (principal) | CPT/HCPCS: 81599 ==